=== PATIENT | male | born 1995 | race Hispanic/Latino ===

== ENCOUNTER 2020-12-20 13:38 | Outpatient (CLI) | payer OTHER | END 2020-12-20 13:39 | disposition home or self-care (01) | LOC: LAB 13:38 | PROVIDERS: ATTEND Psychiatry & Neurology Psychiatry | DX: R56.9 Unspecified convulsions (principal) | CPT/HCPCS: 36415; 80164 ==

== ENCOUNTER 2020-12-21 18:00 | Emergency (ER) | payer OTHER ==
[2020-12-21] MEDS ORDERED: ONDANSETRON 4 MG/2 ML INJ IV ONE (18:11)
[2020-12-21] MEDS ORDERED: SODIUM CHLORIDE 0.9% 1000 ML 1,000 ML IV ONE (18:11)
[2020-12-21] MEDS ORDERED: MORPHINE 4 MG/1 ML INJ IV ONE (18:11)
[2020-12-21 18:13] VITALS: BP 131/70
--- NOTE | 2020-12-21 18:14 | Event Note ---
ED Screening Note Date of service: 12/21/20 Time: 18:12 ED Screening Note: Patient is a 25-year-old white male with a history of TBI who presents to the ED with acute onset persistent severe right lower quadrant abdominal pain that radiates diffusely to the lower abdomen for the last 6 hours, worse in the last 2 hours. Patient states that the pain is constant, sharp and worse with movement or palpation. Patient denies nausea, vomiting, dysuria, urinary frequency and urgency, hematuria, chest pain, shortness of breath, fever, chills, diarrhea, low back pain, testicular pain or traumatic injury and fall. Physical exam is positive for rebound right lower quadrant tenderness with guarding. This initial assessment/diagnostic orders/clinical plan/treatment(s) is/are subject to change based on patients health status, clinical progression and re- assessment by fellow clinical providers in the ED. Further treatment and workup at subsequent clinical providers discretion. Patient/guardian urged not to elope from the ED as their condition may be serious if not clinically assessed and man aged. Initial orders include: CBC, CMP, lipase, UA, CT abdomen pelvis with contrast
[2020-12-21 18:31] LABS: Basophils % (Auto) 0.6 % (0.0-1.8); Eosinophils # (Auto) 0.3 K/mm3 (0.0-0.4); Eosinophils % (Auto) 3.2 % (0.0-4.3); Hematocrit 45.5 % (35.5-45.6); Hemoglobin 15.9 gm/dl (11.8-15.2); Lymphocytes # (Auto) 3.1 K/mm3 (1.2-5.4); Lymphocytes % (Auto) 36.2 % (13.4-35.0); Mean Corpuscular HGB Conc 35 % (32-34); Mean Corpuscular Volume 86 fl (84-94); Monocytes # (Auto) 0.7 K/mm3 (0.0-0.8); Monocytes % (Auto) 7.9 % (0.0-7.3); Platelet Count 143 K/mm3 (140-440); Red Blood Count 5.29 M/mm3 (3.65-5.03); Red Cell Distribution Width 13.5 % (13.2-15.2)
[2020-12-21 18:31] LABS: Bilirubin,Urine NEG (Negative); Blood,Urine NEG (Negative); Color,Urine Yellow (Yellow); Mucus,Urine FEW /HPF; Protein,Urine <15 mg/dL mg/dL (Negative); WBC,Urine < 1.0 /HPF (0.0-6.0)
[2020-12-21 18:56] LABS: Alanine Aminotransferase 23 units/L (7-56); Albumin 4.6 g/dL (3.9-5); BUN/Creatinine Ratio 11; Blood Urea Nitrogen 10 mg/dL (9-20); Calcium 9.2 mg/dL (8.4-10.2); Hemolysis Index 7
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
== END 2020-12-22 00:05 | disposition home or self-care (01) ==
LOC: ED 18:00
DX: R10.31 Right lower quadrant pain (principal); Z79.899 Other long term (current) drug therapy
CPT/HCPCS: 36415; 74177; 80053; 81001; 83690; 85025; 96361; 96374; 96375; 99284; J2270; J2405; J7030; Q9967